=== PATIENT | male | born 1940 | race Caucasian/White ===

== ENCOUNTER → 2017-01-29 | Outpatient (CLI) | payer MEDICARE ==
[~2017-01-29] MED LIST: ASPIRIN81 M1 PO; MULTIVITAMIN1 TAB PO; NORVASC5 MG PO; PRAVASTATIN SOD20 MG PO; SYNTHROID,LEV200 MCG PO
[2017-01-29 08:39] LABS: BASO % 0.7 % (0.0-1.0); EOS # 0.2 10*3/uL (0.0-0.4); EOS % 3.8 % (1.0-4.0); HEMATOCRIT 46.5 % (42.0-52.0); HEMOGLOBIN 15.4 g/dl (14.0-18.0); LYMPH # 1.7 10*3/uL (1.3-4.4); LYMPH % 27.8 % (27.0-41.0); MEAN CELL VOLUME 89.6 fl (80.0-94.0); MEAN CORPUSCULAR HGB 29.7 pg (27.0-31.0); MEAN CORPUSCULAR HGB CONC 33.1 g/dl (33.0-37.0); MEAN PLATELET VOLUME 10.5 fl (9.6-12.3); MONO # 0.5 10*3/uL (0.1-1.0); MONO % 8.4 % (3.0-9.0); NEUT # 3.6 10*3/uL (2.3-7.9); NEUT % 58.8 % (47.0-73.0); PLATELET COUNT AUTOMATED 171 10*3/uL (130-400); RED BLOOD COUNT 5.19 10*6/uL (4.50-5.90); WHITE BLOOD COUNT 6.1 10*3/uL (4.8-10.8)
[2017-01-29 09:17] LABS: ALBUMIN 3.6 gm/dl (3.1-4.5); ALKALINE PHOSPHATASE 81 U/L (45-117); BILIRUBIN, DIRECT < 0.1 mg/dL (0.0-0.2); BILIRUBIN, TOTAL 0.4 mg/dl (0.2-1.0); BUN 15 mg/dl (7-24); CARBON DIOXIDE 32 mmol/L (21-32); CHLORIDE 105 mmol/L (98-107); EST GLOM FILT AFRICAN AMERICAN > 60 ml/min; GLUCOSE 79 mg/dL (65-99); POTASSIUM 3.9 mmol/L (3.5-5.1); SGOT/AST 26 IU/L (3-35); SGPT/ALT 26 U/L (12-78); SODIUM 143 mmol/L (136-145); THYROXINE (T4) TOTAL 10.6 ug/dl (4.5-12.1); TOTAL PROTEIN 7.3 gm/dL (6.4-8.2)
== END | disposition home or self-care (01) ==
LOC: LAB 08:11
PROVIDERS: Family Medicine
DX: I10 Essential (primary) hypertension (principal); E03.9 Hypothyroidism, unspecified

== ENCOUNTER → 2017-02-20 | Outpatient (CLI) | payer MEDICARE | END | disposition home or self-care (01) | LOC: LAB 08:05 | DX: E83.51 Hypocalcemia (principal) ==

== ENCOUNTER 2017-04-24 17:06 | Emergency (ER) | payer MEDICARE ==
[~2017-04-24] VITALS: Ht 177.8 cm; Wt 113.4 kg
--- NOTE | ~2017-04-24 | PROC NOTE ---
[place], [place] PROCEDURE NOTE NAME: TRE HARRIS UNIT #: [id number] ROOM: DOCTOR: CECILIA NUNES CRNA BIRTHDATE: [birth year] DOS: 04/24/2017 The patient called to Emergency Department for cardiac arrest. Upon arrival of patient by EMS, the patient noted to be very cyanotic. The patient had a Jason airway in place and was being ventilated with 100% oxygen, but still with persistent cyanosis. Decision made by Dr. Alcala to remove the Jason airway and intubate the patient. Jason airway removed. Intubated without difficulty with an 8 mm ET tube secured at 23 cm at the lip. The patient did have bilateral breath sounds. The patient did have positive end-tidal CO2 as per waveform capnography. Patient in persistent cardiac arrest, tolerated the procedure well. CECILIA NUNES CRNA CM:PROCNOTE:PROCEDURE NOTE [id number] CECILIA NUNES CRNA
== END 2017-04-24 19:37 | disposition expired ==
LOC: ED 17:06
DX: I46.9 Cardiac arrest, cause unspecified (principal); I21.4 Non-ST elevation (NSTEMI) myocardial infarction; I10 Essential (primary) hypertension; Z90.89 Acquired absence of other organs; Z79.82 Long term (current) use of aspirin; Z79.899 Other long term (current) drug therapy; E78.00 Pure hypercholesterolemia, unspecified